=== PATIENT | male | born 1950 | race Caucasian/White ===

== ENCOUNTER 2021-09-29 18:55 | Inpatient (IN) | payer OTHER ==
[~2021-09-29] VITALS: Ht 172.7 cm; Wt 75.0 kg
--- NOTE | 2021-09-29 19:23 | NUR ---
Patient does not take home medications as he does not see a doctor regularly.
[2021-09-29 20:20] LABS: BASOPHILS % (AUTO) 0.2 % (0-1); EOSINOPHILS % (AUTO) 0.3 % (0-6); HEMATOCRIT 48.5 % (42.0-52.0); HEMOGLOBIN 15.8 g/dl (14.0-17.9); LYMPHOCYTES # (AUTO) 1.3 X10'3 (1.1-4.8); LYMPHOCYTES % (AUTO) 8.2 % (21-51); MEAN CORPUSCULAR HEMOGLOBIN 28.5 PG (27.0-31.0); MEAN CORPUSCULAR HGB CONC 32.6 g/dL (33.0-36.5); MEAN CORPUSCULAR VOLUME 87.3 FL (78-98); MONOCYTES # (AUTO) 1.1 X10'3 (0-0.9); MONOCYTES % (AUTO) 6.9 % (2-12); NEUTROPHILS # (AUTO) 13.7 X10'3 (1.8-7.7); NEUTROPHILS % (AUTO) 84.4 % (42-75); PLATELET COUNT 152 X10'3 (140-440); RED BLOOD COUNT 5.55 X10'6 (4.70-6.10); RED CELL DISTRIBUTION WIDTH 14.1 % (11.5-14.5); WHITE BLOOD COUNT 16.2 X10'3 (4.5-11.0)
[2021-09-29 20:40] LABS: ALANINE AMINOTRANSFERASE 53 U/L (12-78); ALKALINE PHOSPHATASE 66 IU/L (46-116); ANION GAP 9 (8-16); ASPARTATE AMINO TRANSFERASE 32 U/L (10-37); BILIRUBIN,TOTAL 0.7 MG/DL (0.1-1.0); BLOOD UREA NITROGEN 20 MG/DL (7-18); BUN/CREATININE RATIO 19.4 (5.4-32.0); CALCIUM 8.9 MG/DL (8.5-10.1); CHLORIDE 103 MMOL/L (99-107); CREATININE 1.03 MG/DL (0.60-1.10); GLUCOSE 136 MG/DL (70-104); POTASSIUM 4.4 MMOL/L (3.5-5.1); SODIUM 139 MMOL/L (135-145); TOTAL CARBON DIOXIDE 26.7 MMOL/L (24-32); TOTAL PROTEIN 8.1 G/DL (6.4-8.2); eGFR 72 ML/MIN
[2021-09-29 20:51] LABS: ETHANOL < 0.010 GM/DL (0.0-0.010)
[2021-09-29] MEDS ORDERED: enoxaparin 100mg/ml syringe SUBCUT ONE (21:05)
[2021-09-29] MEDS ORDERED: iohexol 350MG/ML 100ml bottle IV ONE (21:08)
[2021-09-29] MEDS ORDERED: NO HOME MEDS (21:08)
[2021-09-29 21:28] LABS: CLARITY,URINE CLEAR (Clear); COLOR,URINE YELLOW (Yellow); GLUCOSE, URINE NEGATIVE (Neg); KETONES,URINE NEGATIVE (Neg); LEUKOCYTE ESTERASE ,URINE NEGATIVE (Neg); NITRITES, URINE NEGATIVE (Neg); OCCULT BLOOD,URINE NEGATIVE (Neg); PROTEIN,URINE 30 mg/dl (Neg); UROBILINOGEN,URINE 0.2 E.U/dL (0.2-1.0)
[2021-09-29 21:41] LABS: BACTERIA,URINE NONE SEEN /HPF (Neg); MUCUS STRANDS FEW /LPF (Neg); RBC,URINE NONE SEEN /HPF (0-2); SPERM FEW /HPF (NEGATIVE); SQUAMOUS EPITHELIAL CELL,UR FEW /LPF (FEW); UA COLLECTION TYPE URINAL; WBC,URINE NONE SEEN /HPF (0-4)
--- NOTE | 2021-09-29 21:50 | NUR ---
Rickie Sanchez RN of patient's elevated Troponin level at 2488.
[2021-09-29] MEDS ORDERED: aspirin 325mg tablet PO STA (22:02)
[2021-09-29 23:12] LABS: APTT 24 SECONDS (22-32)
[2021-09-30] VITALS (12 sets, daily range): BP systolic 97–126; BP diastolic 61–84
[2021-09-30] MEDS ORDERED: ondansetron/PF 4mg/2ml inj IV ONE (00:15)
[2021-09-30] MEDS ORDERED: diphenhydrAMINE 25mg capsule PO PRN (01:40)
[2021-09-30] MEDS ORDERED: naloxone 0.4 mg/ml inj IV PRN (01:40)
[2021-09-30] MEDS ORDERED: dextrose 5%-1/2 normal saline 1,000 ML IV SCH (01:40)
[2021-09-30] MEDS ORDERED: mag hydrox/Alum hydrox/simeth 30ml oral suspension PO PRN (01:40)
[2021-09-30] MEDS ORDERED: bisacodyl 10mg suppository rectal RC PRN (01:40)
[2021-09-30] MEDS ORDERED: acetaminophen 325mg tablet PO PRN ×2 (01:40)
[2021-09-30] MEDS ORDERED: morphine 2 MG/ML inj. syringe IV PRN ×2 (01:40)
[2021-09-30] MEDS ORDERED: diphenhydrAMINE 50 mg/ml inj IV PRN (01:40)
[2021-09-30] MEDS ORDERED: magnesium hydroxide 30ml (MOM) UD suspension PO PRN (01:40)
[2021-09-30] MEDS ORDERED: ondansetron/PF 4mg/2ml inj IV PRN (01:40)
[2021-09-30] MEDS ORDERED: acetaminophen 650mg rectal suppository RC PRN (01:40)
[2021-09-30] MEDS ORDERED: ondansetron 4mg rapidly disintigrating tab PO PRN (01:40)
--- NOTE | 2021-09-30 04:04 | NUR ---
called Dr Phillips to clarify if to start heparin drip ryan. Subsequent call to pharmacy heparin drip is appropriately ordered to start at 0900 on 9Apr22 d/t last lovenox injection 80mg at 2100
--- NOTE | 2021-09-30 06:06 | NUR ---
pt refused to place money with security to go into the safe. Pt states he rather hold onto it. Pt aware and understands that he is responsible for it
--- NOTE | 2021-09-30 07:21 | NUR ---
Patient in room PCU 3016. I have received report from Carolyn and had the opportunity to ask questions and assume patient care
[2021-09-30 07:31] LABS: HEMOGLOBIN A1C 6.3 % (4.5-6.2)
[2021-09-30 07:39] LABS: MAGNESIUM 2.3 MG/DL (1.5-2.4); PHOSPHORUS 3.9 MG/DL (2.3-4.5)
[2021-09-30] MEDS: metoprolol succinate 25mg (24-HOUR) SR. Tablet PO SCH (07:42)
[2021-09-30] MEDS: lisinopril 5mg tablet PO SCH (07:42)
[2021-09-30] MEDS: atorvastatin 20mg tablet PO SCH (07:43)
[2021-09-30] MEDS: docusate sod 100mg capsule PO SCH ×2 (07:43→19:39)
[2021-09-30] MEDS: aspirin 81mg, enteric-coated 1 TAB TABLET.DR PO SCH (07:43)
[2021-09-30] MEDS: pantoprazole 40mg Tablet.DR PO SCH (07:44)
[2021-09-30] MEDS ORDERED: heparin 10,000 units/1 ML INJ IV PRN (08:50)
[2021-09-30] MEDS: heparin 25,000 UNIT/250ml bag 250 ML IV SCH (09:24)
--- NOTE | 2021-09-30 13:25 | NUR ---
Page Sent promotional table spacer PAGER ID: [phone] MESSAGE: [phone]. Need order to move to ICU. Please also call house sup. Thank you. Sal SHABAZZ
--- NOTE | 2021-09-30 14:33 | NUR ---
Patient in room PCU 3023. I have received report from Sal RODRIGES and had the opportunity to ask questions in preparation to assume pt care when pt arrives to ICU 2044. per Sal, pt alert and oriented x4, heparin gtt @ 1500units/hr, next PTT 1530.
--- NOTE | 2021-09-30 14:55 | NUR ---
Problems reprioritized. Patient report given, questions answered & plan of care reviewed with
--- NOTE | 2021-09-30 15:16 | NUR ---
Pt arrived via wheel chair at 1445. pt alert and oriented, speech clear, safety education completed. pt ambulated with stand by assist to sit on the bed. skin check completed with Caitlyn RODRIGES. skin unremarkable except superficial abrasion to left forehead. pt verbalizing simple needs. pt hooked up to monitors, VS stable. Heparin running at 1500U/HR. next Ptt at 1530. Dr. Christian on the unit and verbal order received for additional labs.
[2021-09-30 15:36] LABS: MEAN PLATELET VOLUME 9.5 FL (7.4-10.4)
[2021-09-30 15:37] LABS: BASOPHILS # (AUTO) 0.1 X10'3 (0-0.2); BASOPHILS % (AUTO) 0.5 % (0-1); EOSINOPHILS # (AUTO) 0.1 X10'3 (0-0.9); EOSINOPHILS % (AUTO) 0.8 % (0-6); HEMATOCRIT 45.1 % (42.0-52.0); HEMOGLOBIN 14.7 g/dl (14.0-17.9); LYMPHOCYTES # (AUTO) 2.4 X10'3 (1.1-4.8); MEAN CORPUSCULAR HEMOGLOBIN 28.7 PG (27.0-31.0); MEAN CORPUSCULAR HGB CONC 32.7 g/dL (33.0-36.5); MEAN CORPUSCULAR VOLUME 87.6 FL (78-98); MONOCYTES # (AUTO) 1.2 X10'3 (0-0.9); MONOCYTES % (AUTO) 9.2 % (2-12); NEUTROPHILS % (AUTO) 70.5 % (42-75); PLATELET COUNT 158 X10'3 (140-440); RED BLOOD COUNT 5.14 X10'6 (4.70-6.10); RED CELL DISTRIBUTION WIDTH 14.2 % (11.5-14.5); WHITE BLOOD COUNT 12.8 X10'3 (4.5-11.0)
[2021-09-30 15:59] LABS: ALANINE AMINOTRANSFERASE 47 U/L (12-78); ALBUMIN 3.4 G/DL (3.4-5.0); ALBUMIN/GLOBULIN RATIO 0.9 (1.1-1.5); ALKALINE PHOSPHATASE 62 IU/L (46-116); ANION GAP 9 (8-16); ASPARTATE AMINO TRANSFERASE 41 U/L (10-37); BILIRUBIN,TOTAL 0.4 MG/DL (0.1-1.0); BLOOD UREA NITROGEN 23 MG/DL (7-18); CALCIUM 8.4 MG/DL (8.5-10.1); CHLORIDE 107 MMOL/L (99-107); CREATININE 0.96 MG/DL (0.60-1.10); GLUCOSE 135 MG/DL (70-104); POTASSIUM 3.8 MMOL/L (3.5-5.1); SODIUM 140 MMOL/L (135-145); TOTAL CARBON DIOXIDE 24.4 MMOL/L (24-32); TOTAL PROTEIN 7.2 G/DL (6.4-8.2); eGFR 78 ML/MIN
[2021-09-30] MEDS ORDERED: temazepam 15mg capsule PO PRN (21:00)
[2021-10-01] VITALS (24 sets, daily range): BP systolic 96–128; BP diastolic 55–79
[2021-10-01] MEDS: heparin 25,000 UNIT/250ml bag 250 ML IV SCH ×2 (02:41→19:18)
[2021-10-01 03:18] LABS: BASOPHILS % (AUTO) 0.3 % (0-1); EOSINOPHILS # (AUTO) 0.3 X10'3 (0-0.9); EOSINOPHILS % (AUTO) 1.9 % (0-6); HEMATOCRIT 44.4 % (42.0-52.0); HEMOGLOBIN 14.4 g/dl (14.0-17.9); LYMPHOCYTES # (AUTO) 3.8 X10'3 (1.1-4.8); LYMPHOCYTES % (AUTO) 28.3 % (21-51); MEAN CORPUSCULAR HEMOGLOBIN 28.2 PG (27.0-31.0); MEAN CORPUSCULAR HGB CONC 32.5 g/dL (33.0-36.5); MEAN CORPUSCULAR VOLUME 86.9 FL (78-98); MEAN PLATELET VOLUME 9.9 FL (7.4-10.4); MONOCYTES # (AUTO) 1.3 X10'3 (0-0.9); MONOCYTES % (AUTO) 9.7 % (2-12); NEUTROPHILS # (AUTO) 7.9 X10'3 (1.8-7.7); NEUTROPHILS % (AUTO) 59.8 % (42-75); PLATELET COUNT 161 X10'3 (140-440); RED BLOOD COUNT 5.11 X10'6 (4.70-6.10); RED CELL DISTRIBUTION WIDTH 14.1 % (11.5-14.5); WHITE BLOOD COUNT 13.3 X10'3 (4.5-11.0)
[2021-10-01 04:29] LABS: ALANINE AMINOTRANSFERASE 45 U/L (12-78); ALBUMIN 3.3 G/DL (3.4-5.0); ALBUMIN/GLOBULIN RATIO 0.9 (1.1-1.5); ALKALINE PHOSPHATASE 60 IU/L (46-116); ANION GAP 7 (8-16); ASPARTATE AMINO TRANSFERASE 40 U/L (10-37); BILIRUBIN,TOTAL 0.6 MG/DL (0.1-1.0); BLOOD UREA NITROGEN 21 MG/DL (7-18); BUN/CREATININE RATIO 21.9 (5.4-32.0); CALCIUM 8.3 MG/DL (8.5-10.1); CHLORIDE 106 MMOL/L (99-107); CHOL/HDL RATIO 4.4 (0.00-4.99); CHOLESTEROL 183 MG/DL (0-200); CREATININE 0.96 MG/DL (0.60-1.10); GLUCOSE 110 MG/DL (70-104); HDL CHOLESTEROL 42 MG/DL (35-60); LDL CHOLESTEROL 134 MG/DL (50-100); SODIUM 140 MMOL/L (135-145); TOTAL CARBON DIOXIDE 26.6 MMOL/L (24-32); TRIGLYCERIDES 100 MG/DL (20-135); eGFR 78 ML/MIN
[2021-10-01] MEDS: docusate sod 100mg capsule PO SCH ×2 (08:26→19:16)
[2021-10-01] MEDS: aspirin 81mg, enteric-coated 1 TAB TABLET.DR PO SCH (08:26)
[2021-10-01] MEDS: pantoprazole 40mg Tablet.DR PO SCH (08:26)
[2021-10-01] MEDS: atorvastatin 20mg tablet PO SCH (08:27)
[2021-10-01] MEDS: lisinopril 5mg tablet PO SCH (08:27)
[2021-10-01] MEDS: metoprolol succinate 25mg (24-HOUR) SR. Tablet PO SCH (08:27)
[2021-10-01] MEDS ORDERED: naproxen 500mg tablet PO ONE (12:55)
--- NOTE | 2021-10-01 14:19 | NUR ---
Patient heparin rate at 1500 units/hr. PTT therapeutic for three consecutive PTTs at the rate. Spoke with Dr. Grady, PTT to be run daily.
[2021-10-02] VITALS (24 sets, daily range): BP systolic 87–137; BP diastolic 55–83
[2021-10-02 05:40] LABS: BASOPHILS % (AUTO) 0.4 % (0-1); EOSINOPHILS # (AUTO) 0.4 X10'3 (0-0.9); EOSINOPHILS % (AUTO) 3.7 % (0-6); HEMOGLOBIN 13.9 g/dl (14.0-17.9); LYMPHOCYTES # (AUTO) 3.5 X10'3 (1.1-4.8); LYMPHOCYTES % (AUTO) 31.5 % (21-51); MEAN CORPUSCULAR HEMOGLOBIN 27.9 PG (27.0-31.0); MEAN CORPUSCULAR HGB CONC 32.2 g/dL (33.0-36.5); MEAN CORPUSCULAR VOLUME 86.5 FL (78-98); MEAN PLATELET VOLUME 9.6 FL (7.4-10.4); MONOCYTES # (AUTO) 1.1 X10'3 (0-0.9); MONOCYTES % (AUTO) 9.8 % (2-12); NEUTROPHILS # (AUTO) 6.1 X10'3 (1.8-7.7); NEUTROPHILS % (AUTO) 54.6 % (42-75); PLATELET COUNT 177 X10'3 (140-440); RED BLOOD COUNT 4.98 X10'6 (4.70-6.10); RED CELL DISTRIBUTION WIDTH 13.7 % (11.5-14.5); WHITE BLOOD COUNT 11.2 X10'3 (4.5-11.0)
[2021-10-02 06:00] LABS: ALANINE AMINOTRANSFERASE 45 U/L (12-78); ALBUMIN/GLOBULIN RATIO 0.8 (1.1-1.5); ALKALINE PHOSPHATASE 54 IU/L (46-116); ANION GAP 7 (8-16); ASPARTATE AMINO TRANSFERASE 32 U/L (10-37); BILIRUBIN,TOTAL 0.6 MG/DL (0.1-1.0); BLOOD UREA NITROGEN 18 MG/DL (7-18); BUN/CREATININE RATIO 21.7 (5.4-32.0); CALCIUM 8.2 MG/DL (8.5-10.1); CHLORIDE 103 MMOL/L (99-107); CREATININE 0.83 MG/DL (0.60-1.10); GLUCOSE 101 MG/DL (70-104); POTASSIUM 3.8 MMOL/L (3.5-5.1); SODIUM 135 MMOL/L (135-145); TOTAL CARBON DIOXIDE 24.8 MMOL/L (24-32); TOTAL PROTEIN 6.7 G/DL (6.4-8.2); eGFR > 90 ML/MIN
[2021-10-02] MEDS: pantoprazole 40mg Tablet.DR PO SCH (07:23)
[2021-10-02] MEDS: atorvastatin 20mg tablet PO SCH (07:23)
[2021-10-02] MEDS: aspirin 81mg, enteric-coated 1 TAB TABLET.DR PO SCH (07:23)
[2021-10-02] MEDS: metoprolol succinate 25mg (24-HOUR) SR. Tablet PO SCH (07:23)
[2021-10-02] MEDS: lisinopril 5mg tablet PO SCH (07:24)
[2021-10-02] MEDS: docusate sod 100mg capsule PO SCH ×2 (07:24→20:00)
[2021-10-02] MEDS: HYDROcodone/acetaminophen 5mg/325mg tablet PO PRN ×3 (07:28→19:27)
--- NOTE | 2021-10-02 09:01 | NUR ---
Dr. Contreras in to see pt. Order to transfer pt. out of ICU rec'd.
[2021-10-02] MEDS: heparin 25,000 UNIT/250ml bag 250 ML IV SCH ×2 (11:00→12:20)
[2021-10-02] MEDS: benzocaine/menthol oral lozeng 1 EACH BOX MM PRN (11:19)
--- NOTE | 2021-10-02 14:52 | NUR ---
Pt. just had head CT. Dr. Higgins consulted for TPA angiogram. Pt. will be NPO after MN and have procedure in am. RN notified Dr. Contreras.
[2021-10-03] VITALS (20 sets, daily range): BP systolic 93–166; BP diastolic 48–99
[2021-10-03] MEDS: benzocaine/menthol oral lozeng 1 EACH BOX MM PRN (04:28)
[2021-10-03 06:06] LABS: BASOPHILS % (AUTO) 0.3 % (0-1); EOSINOPHILS # (AUTO) 0.3 X10'3 (0-0.9); EOSINOPHILS % (AUTO) 2.9 % (0-6); HEMATOCRIT 45.1 % (42.0-52.0); HEMOGLOBIN 14.9 g/dl (14.0-17.9); LYMPHOCYTES # (AUTO) 2.8 X10'3 (1.1-4.8); LYMPHOCYTES % (AUTO) 28.8 % (21-51); MEAN CORPUSCULAR HEMOGLOBIN 28.8 PG (27.0-31.0); MEAN CORPUSCULAR HGB CONC 33.1 g/dL (33.0-36.5); MEAN CORPUSCULAR VOLUME 87.2 FL (78-98); MEAN PLATELET VOLUME 9.4 FL (7.4-10.4); MONOCYTES # (AUTO) 0.8 X10'3 (0-0.9); MONOCYTES % (AUTO) 8.6 % (2-12); NEUTROPHILS # (AUTO) 5.8 X10'3 (1.8-7.7); NEUTROPHILS % (AUTO) 59.4 % (42-75); PLATELET COUNT 191 X10'3 (140-440); RED BLOOD COUNT 5.17 X10'6 (4.70-6.10); RED CELL DISTRIBUTION WIDTH 13.9 % (11.5-14.5); WHITE BLOOD COUNT 9.7 X10'3 (4.5-11.0)
[2021-10-03 06:37] LABS: ALANINE AMINOTRANSFERASE 60 U/L (12-78); ALBUMIN 3.2 G/DL (3.4-5.0); ALBUMIN/GLOBULIN RATIO 0.8 (1.1-1.5); ALKALINE PHOSPHATASE 60 IU/L (46-116); ANION GAP 10 (8-16); ASPARTATE AMINO TRANSFERASE 36 U/L (10-37); BILIRUBIN,TOTAL 0.5 MG/DL (0.1-1.0); BLOOD UREA NITROGEN 18 MG/DL (7-18); BUN/CREATININE RATIO 20.2 (5.4-32.0); CALCIUM 8.6 MG/DL (8.5-10.1); CHLORIDE 105 MMOL/L (99-107); CREATININE 0.89 MG/DL (0.60-1.10); GLUCOSE 112 MG/DL (70-104); POTASSIUM 3.9 MMOL/L (3.5-5.1); SODIUM 139 MMOL/L (135-145); TOTAL CARBON DIOXIDE 24.1 MMOL/L (24-32); TOTAL PROTEIN 7.3 G/DL (6.4-8.2); eGFR 85 ML/MIN
[2021-10-03] MEDS: atorvastatin 20mg tablet PO SCH (07:05)
[2021-10-03] MEDS: lisinopril 5mg tablet PO SCH (07:05)
[2021-10-03] MEDS: pantoprazole 40mg Tablet.DR PO SCH (07:05)
[2021-10-03] MEDS: docusate sod 100mg capsule PO SCH ×2 (07:06→20:32)
[2021-10-03] MEDS: aspirin 81mg, enteric-coated 1 TAB TABLET.DR PO SCH (07:06)
[2021-10-03] MEDS: metoprolol succinate 25mg (24-HOUR) SR. Tablet PO SCH (07:06)
--- NOTE | 2021-10-03 07:35 | NUR ---
Dr. Contreras in to see pt. Updated on plan of care.
[2021-10-03] MEDS ORDERED: hydrALAZINE 20mg/ml inj. IV PRN (08:25)
--- NOTE | 2021-10-03 08:51 | NUR ---
PRN Hydralazine given for SBP above 160 per new order this am.
[2021-10-03] MEDS: heparin 25,000 UNIT/250ml bag 250 ML IV SCH (13:31)
--- NOTE | 2021-10-03 14:02 | NUR ---
Dr. Zuniga here to see pt. Orders rec'd for PT and ECHO.
--- NOTE | 2021-10-03 14:15 | NUR ---
ECHO being done.
--- NOTE | 2021-10-03 14:38 | NUR ---
Pt. ambulated with RN. Tolerated well. No SOB/CP. VSS during walk.
[2021-10-03] MEDS: HYDROcodone/acetaminophen 5mg/325mg tablet PO PRN ×2 (14:43→20:33)
--- NOTE | 2021-10-03 14:53 | NUR ---
Dr. Contreras ordered pt. to transfer to Tele.
--- NOTE | 2021-10-03 15:36 | NUR ---
Ordered pt. a sandwich since he has been NPO for breakfast and lunch. No IR procedure scheduled. Awaiting Tele Floor bed. VSS.
--- NOTE | 2021-10-03 15:38 | NUR ---
Pt. constipated with no BM since admit. Refused M.O.M.
--- NOTE | 2021-10-03 17:00 | NUR ---
Attempted to call report. Caitlyn said she could not locate the RN Faviola and will have her call for report.
--- NOTE | 2021-10-03 17:36 | NUR ---
Pt. transferred to U 3018B (after giving report to Faviola RODRIGES) in stable condition with all belongings including meds and chart. house designer aware of pt's arrival. Pt. was given call light prior to FLIGHT ENGINEER INSTRUCTOR leaving pt.
--- NOTE | 2021-10-04 01:16 | NUR ---
0110 pt became agitated and aggressive, pushing staff and yelling. Pt stated he believes he is at home and the staff members were intruders. Pt was redirected with no affect. Security called and valium was given .
[2021-10-04 01:44] LABS: BASOPHILS % (AUTO) 0.3 % (0-1); EOSINOPHILS # (AUTO) 0.2 X10'3 (0-0.9); EOSINOPHILS % (AUTO) 2.2 % (0-6); HEMATOCRIT 45.1 % (42.0-52.0); HEMOGLOBIN 14.8 g/dl (14.0-17.9); LYMPHOCYTES # (AUTO) 3.2 X10'3 (1.1-4.8); LYMPHOCYTES % (AUTO) 30.5 % (21-51); MEAN CORPUSCULAR HEMOGLOBIN 28.7 PG (27.0-31.0); MEAN CORPUSCULAR HGB CONC 32.8 g/dL (33.0-36.5); MEAN CORPUSCULAR VOLUME 87.7 FL (78-98); MEAN PLATELET VOLUME 9.7 FL (7.4-10.4); MONOCYTES % (AUTO) 9.2 % (2-12); NEUTROPHILS % (AUTO) 57.8 % (42-75); PLATELET COUNT 206 X10'3 (140-440); RED BLOOD COUNT 5.15 X10'6 (4.70-6.10); RED CELL DISTRIBUTION WIDTH 13.9 % (11.5-14.5); WHITE BLOOD COUNT 10.4 X10'3 (4.5-11.0)
[2021-10-04 01:46] LABS: ALANINE AMINOTRANSFERASE 66 U/L (12-78); ALBUMIN 3.2 G/DL (3.4-5.0); ALBUMIN/GLOBULIN RATIO 0.8 (1.1-1.5); ALKALINE PHOSPHATASE 62 IU/L (46-116); ANION GAP 12 (8-16); ASPARTATE AMINO TRANSFERASE 43 U/L (10-37); BILIRUBIN,TOTAL 0.4 MG/DL (0.1-1.0); BLOOD UREA NITROGEN 18 MG/DL (7-18); BUN/CREATININE RATIO 21.4 (5.4-32.0); CALCIUM 8.5 MG/DL (8.5-10.1); CHLORIDE 104 MMOL/L (99-107); CREATININE 0.84 MG/DL (0.60-1.10); GLUCOSE 104 MG/DL (70-104); SODIUM 139 MMOL/L (135-145); TOTAL PROTEIN 7.1 G/DL (6.4-8.2); eGFR > 90 ML/MIN
[2021-10-04 02:00] VITALS: BP 101/70
[2021-10-04] MEDS: HYDROcodone/acetaminophen 5mg/325mg tablet PO PRN (05:41)
[2021-10-04 07:35] VITALS: BP 132/68
--- NOTE | 2021-10-04 08:38 | NUR ---
Initial: Pt admitted w/ bilateral PE w/ R sided heart strain and RLE DVT per EMR. Currently on Mechanical soft diet per [employer] recs w/ mostly 75-100% intake of meals meeting est nutrient needs at this time. LBM 4 receiving routine colace and pt noted to have refused PRN MoM. No nutrition intervention implemented at this time, will continue to monitor. Recs: 1. Continue Mechanical soft diet per [employer] recs 2. Routine bowel care 3. Weekly wts Addendum: 10/04/21 at [address] Amended: Links added.
[2021-10-04] MEDS: pantoprazole 40mg Tablet.DR PO SCH (09:46)
[2021-10-04] MEDS: aspirin 81mg, enteric-coated 1 TAB TABLET.DR PO SCH (09:46)
[2021-10-04] MEDS: docusate sod 100mg capsule PO SCH (09:47)
[2021-10-04] MEDS: metoprolol succinate 25mg (24-HOUR) SR. Tablet PO SCH (09:47)
[2021-10-04] MEDS: lisinopril 5mg tablet PO SCH (09:47)
[2021-10-04] MEDS: atorvastatin 20mg tablet PO SCH (09:47)
--- NOTE | 2021-10-04 11:42 | NUR ---
1145 10/04/2021 Stopped heparin drip and gave 10mg pO eliquis per MD order.
[2021-10-04] MEDS ORDERED: apixaban 5mg tablet PO ONE (12:00)
[2021-10-04 14:00] VITALS: BP 118/77
[2021-10-04] MEDS ORDERED: ATOR20TA66 PO (14:15)
[2021-10-04] MEDS ORDERED: METO50TA16 PO (14:15)
[2021-10-04] MEDS ORDERED: LISI5TAB22 PO (14:15)
[2021-10-04] MEDS ORDERED: APIX5TAB3 PO (14:15)
[2021-10-04] MEDS ORDERED: OXYC1TAB17 PO ×2 (15:50→16:14)
== END 2021-10-04 16:00 | disposition home or self-care (01) | DRG 175 ==
LOC: ER 18:56 → ED HOLD 21:37 → PCU 3S 09-30 02:36 → ICU 2S 09-30 14:51 → PCU 3S 10-03 17:25
PROVIDERS: ADMIT Family Medicine; ATTEND Family Medicine
PROC: B32T1ZZ Computerized Tomography (CT Scan) of Left Pulmonary Artery using Low Osmolar Contrast (ICD-10-PCS; principal; 2021-09-29)
PROC: B3201ZZ Computerized Tomography (CT Scan) of Thoracic Aorta using Low Osmolar Contrast (ICD-10-PCS; 2021-09-29)
PROC: B32S1ZZ Computerized Tomography (CT Scan) of Right Pulmonary Artery using Low Osmolar Contrast (ICD-10-PCS; 2021-09-29)
DX: I26.99 Other pulmonary embolism without acute cor pulmonale (principal); I21.A1 Myocardial infarction type 2; I82.411 Acute embolism and thrombosis of right femoral vein; D35.02 Benign neoplasm of left adrenal gland; E78.00 Pure hypercholesterolemia, unspecified; M25.512 Pain in left shoulder; K76.0 Fatty (change of) liver, not elsewhere classified; I27.20 Pulmonary hypertension, unspecified; D72.829 Elevated white blood cell count, unspecified; W18.39XA Other fall on same level, initial encounter; F12.90 Cannabis use, unspecified, uncomplicated; I50.810 Right heart failure, unspecified; Z60.2 Problems related to living alone; I11.0 Hypertensive heart disease with heart failure; R55 Syncope and collapse; J44.9 Chronic obstructive pulmonary disease, unspecified; S00.81XA Abrasion of other part of head, initial encounter; Z79.01 Long term (current) use of anticoagulants; Z79.899 Other long term (current) drug therapy; Z87.891 Personal history of nicotine dependence; Y93.89 Activity, other specified; Y92.098 Other place in other non-institutional residence as the place of occurrence of the external cause; Y99.8 Other external cause status; Z88.5 Allergy status to narcotic agent
CPT/HCPCS: 36415; 70450; 71045; 71275; 73030; 73502; 73552; 80053; 80061; 80320; 81001; 83036; 83735; 83880; 84100; 84145; 84443; 84484; 85025; 85730; 87081; 92508; 92616; 93005; 93306; 93308; 93970; 96372; 97116; 97161; 97530; 99291; G0378; J0360; J1644; J1650; J2405; Q9967

== ENCOUNTER 2023-07-07 12:52 | Emergency (ER) | payer MEDICAID ==
[~2023-07-07] VITALS: Ht 172.7 cm; Wt 85.4 kg
[~2023-07-07 12:52] MED LIST: APIX5TAB3 PO; ATOR20TA66 PO; LISI5TAB22 PO; METO50TA16 PO; OXYC1TAB17 PO
[2023-07-07 13:23] VITALS: BP 122/72; PULSE 97; RESP 12; TEMP 97; O2SAT 97
[2023-07-07] MEDS ORDERED: DICL20GE TP (15:06)
[2023-07-07] MEDS ORDERED: OXYC-593 PO (15:09)
== END 2023-07-07 15:29 | disposition home or self-care (01) ==
LOC: ER 12:52
DX: S83.91XA Sprain of unspecified site of right knee, initial encounter (principal); M25.561 Pain in right knee; E78.00 Pure hypercholesterolemia, unspecified; I10 Essential (primary) hypertension; F12.90 Cannabis use, unspecified, uncomplicated; Z86.718 Personal history of other venous thrombosis and embolism; Z88.8 Allergy status to other drugs, medicaments and biological substances; Z79.899 Other long term (current) drug therapy; Z85.46 Personal history of malignant neoplasm of prostate; Z79.01 Long term (current) use of anticoagulants; X50.1XXA Overexertion from prolonged static or awkward postures, initial encounter; Y93.89 Activity, other specified; Y92.89 Other specified places as the place of occurrence of the external cause; Y99.8 Other external cause status
CPT/HCPCS: 29530; 99284

== ENCOUNTER 2023-07-17 11:18 | Emergency (ER) | payer MEDICAID ==
[~2023-07-17] VITALS: Ht 172.7 cm; Wt 85.5 kg
[~2023-07-17 11:18] MED LIST changes: +DICL20GE TP; +OXYC-593 PO
[2023-07-17 11:56] VITALS: BP 129/83; PULSE 71; RESP 18; O2SAT 98
[2023-07-17 13:01] LABS: BASOPHILS % (AUTO) 0.4 % (0-1); EOSINOPHILS # (AUTO) 0.2 X10'3 (0-0.9); EOSINOPHILS % (AUTO) 2.7 % (0-6); HEMATOCRIT 46.4 % (42.0-52.0); HEMOGLOBIN 15.3 g/dl (14.0-17.9); LYMPHOCYTES # (AUTO) 2.6 X10'3 (1.1-4.8); LYMPHOCYTES % (AUTO) 33.1 % (21-51); MEAN CORPUSCULAR HGB CONC 33.1 g/dL (33.0-36.5); MEAN CORPUSCULAR VOLUME 87.8 FL (78-98); MEAN PLATELET VOLUME 9.4 FL (7.4-10.4); MONOCYTES # (AUTO) 0.8 X10'3 (0-0.9); MONOCYTES % (AUTO) 9.7 % (2-12); NEUTROPHILS # (AUTO) 4.2 X10'3 (1.8-7.7); NEUTROPHILS % (AUTO) 54.1 % (42-75); PLATELET COUNT 219 X10'3 (140-440); RED BLOOD COUNT 5.28 X10'6 (4.70-6.10); RED CELL DISTRIBUTION WIDTH 12.9 % (11.5-14.5); WHITE BLOOD COUNT 7.8 X10'3 (4.5-11.0)
[2023-07-17 13:10] LABS: APTT 28 SECONDS (22-32); PROTHROMBIN TIME 10.5 SECONDS (9.0-12.0)
[2023-07-17 13:12] LABS: ALANINE AMINOTRANSFERASE 67 U/L (12-78); ALBUMIN 3.7 G/DL (3.4-5.0); ALKALINE PHOSPHATASE 68 IU/L (46-116); ANION GAP 7 (8-16); ASPARTATE AMINO TRANSFERASE 40 U/L (10-37); BILIRUBIN,TOTAL 0.4 MG/DL (0.1-1.0); BLOOD UREA NITROGEN 17 MG/DL (7-18); BUN/CREATININE RATIO 23.9 (10.0-20.0); CALCIUM 9.5 MG/DL (8.5-10.1); CHLORIDE 104 MMOL/L (99-107); CREATININE 0.71 MG/DL (0.60-1.10); GLUCOSE 103 MG/DL (70-104); POTASSIUM 4.1 MMOL/L (3.5-5.1); SODIUM 136 MMOL/L (135-145); TOTAL CARBON DIOXIDE 24.8 MMOL/L (24-32); TOTAL PROTEIN 7.3 G/DL (6.4-8.2); eCRCL 92 ML/MIN; eGFR > 90 ML/MIN
[2023-07-17] MEDS ORDERED: OXYC5TAB2 PO (16:41)
[2023-07-17 17:27] VITALS: TEMP 98.1
== END 2023-07-17 17:33 | disposition home or self-care (01) ==
LOC: ER 11:20
DX: S83.8X1A Sprain of other specified parts of right knee, initial encounter (principal); I82.491 Acute embolism and thrombosis of other specified deep vein of right lower extremity; X58.XXXA Exposure to other specified factors, initial encounter; Y93.89 Activity, other specified; Y92.89 Other specified places as the place of occurrence of the external cause; Y99.8 Other external cause status
CPT/HCPCS: 36415; 73564; 80053; 85025; 85610; 85730; 93971; 99284

== ENCOUNTER 2023-11-13 15:28 | Inpatient (IN) | payer MEDICAID ==
[~2023-11-13] VITALS: Ht 172.7 cm; Wt 89.8 kg
[2023-11-13] MEDS ORDERED: iohexol 300mg/ml 100ml inj. ONE (16:37)
[2023-11-13 17:10] LABS: BASOPHILS % (AUTO) 0.2 % (0-1); EOSINOPHILS # (AUTO) 0.2 X10'3 (0-0.9); EOSINOPHILS % (AUTO) 1.9 % (0-6); HEMATOCRIT 45.6 % (42.0-52.0); HEMOGLOBIN 14.7 g/dl (14.0-17.9); LYMPHOCYTES # (AUTO) 0.6 X10'3 (1.1-4.8); LYMPHOCYTES % (AUTO) 6.2 % (21-51); MEAN CORPUSCULAR HGB CONC 32.4 g/dL (33.0-36.5); MEAN CORPUSCULAR VOLUME 89.6 FL (78-98); MEAN PLATELET VOLUME 8.8 FL (7.4-10.4); MONOCYTES # (AUTO) 0.6 X10'3 (0-0.9); MONOCYTES % (AUTO) 6.3 % (2-12); NEUTROPHILS % (AUTO) 85.4 % (42-75); PLATELET COUNT 176 X10'3 (140-440); RED BLOOD COUNT 5.09 X10'6 (4.70-6.10); RED CELL DISTRIBUTION WIDTH 13.7 % (11.5-14.5); WHITE BLOOD COUNT 9.4 X10'3 (4.5-11.0)
[2023-11-13 17:20] LABS: ALBUMIN 3.9 G/DL (3.4-5.0); ANION GAP 5 (8-16); BLOOD UREA NITROGEN 14 MG/DL (7-18); BUN/CREATININE RATIO 16.9 (10.0-20.0); CALCIUM 9.8 MG/DL (8.5-10.1); CHLORIDE 104 MMOL/L (99-107); CREATININE 0.83 MG/DL (0.60-1.10); GLUCOSE 143 MG/DL (70-104); POTASSIUM 4.1 MMOL/L (3.5-5.1); SODIUM 139 MMOL/L (135-145); TOTAL CARBON DIOXIDE 29.9 MMOL/L (24-32); eCRCL 79 ML/MIN; eGFR > 90 ML/MIN
[2023-11-13] MEDS: ondansetron/PF 4mg/2ml inj IV ONE (17:28)
[2023-11-13] MEDS: morphine 4 MG/ML inj SYRINge IV ONE (17:29)
[2023-11-13] MEDS: HYDROmorphone inj. 0.5 MG/0.5 ML DISP.SYRIN IV ONE (19:20)
[2023-11-13] MEDS: pantoprazole 40mg Tablet.DR PO SCH (19:20)
[2023-11-13] MEDS ORDERED: METO25TA6 (19:30)
[2023-11-13] MEDS ORDERED: FLO0.4C (19:30)
[2023-11-13] MEDS ORDERED: SIME125C43 PO (19:30)
[2023-11-13 19:51] LABS: BILIRUBIN,URINE NEGATIVE (Neg); CLARITY,URINE CLEAR (Clear); COLOR,URINE YELLOW (Yellow); GLUCOSE, URINE NEGATIVE (Neg); KETONES,URINE NEGATIVE (Neg); LEUKOCYTE ESTERASE ,URINE NEGATIVE (Neg); NITRITES, URINE NEGATIVE (Neg); OCCULT BLOOD,URINE TRACE-INTACT (Neg); PH,URINE 5.5 (4.8-8.0); PROTEIN,URINE TRACE mg/dl (Neg); UROBILINOGEN,URINE 0.2 E.U/dL (0.2-1.0)
[2023-11-13 19:52] LABS: UA COLLECTION TYPE CLN CATCH MIDSTREAM
[2023-11-13 19:58] LABS: BACTERIA,URINE FEW /HPF (Neg); MUCUS STRANDS MODERATE /LPF (Neg); RBC,URINE 0-2 /HPF (0-2); SQUAMOUS EPITHELIAL CELL,UR FEW /LPF (FEW); WBC,URINE 0-4 /HPF (0-4)
[2023-11-13 19:59] LABS: HYALINE CASTS 0-3 /LPF (NEGATIVE)
[2023-11-13] MEDS: ketorolac trometh. 30mg/ml inj. IV ONE (20:35)
[2023-11-13] MEDS: apixaban 5mg tablet PO SCH (20:38)
[2023-11-13] MEDS ORDERED: morphine 2 MG/ML inj. syringe IV PRN (20:50)
[2023-11-13] MEDS ORDERED: magnesium hydroxide 30ml (MOM) UD suspension PO PRN (20:50)
[2023-11-13] MEDS ORDERED: ondansetron/PF 4mg/2ml inj IV PRN (20:50)
[2023-11-13] MEDS ORDERED: acetaminophen 325mg tablet PO PRN (20:50)
[2023-11-13] MEDS ORDERED: magnesium 4gm in 100ml NS 100 ML IV PRN (20:50)
[2023-11-13] MEDS ORDERED: mag hydrox/Alum hydrox/simeth 30ml oral suspension PO PRN (20:50)
[2023-11-13] MEDS ORDERED: potassium Cl 20 mEq SR tablet PO PRN ×2 (20:50)
[2023-11-13] MEDS ORDERED: magnesium Cl slow-release 64mg tablet PO PRN (20:50)
[2023-11-13] MEDS ORDERED: magnesium 2GM in 50ml NS 50 ML IV PRN (20:50)
[2023-11-13] MEDS ORDERED: potassium Cl 40MEQ/1/2NS 520ml 520 ML IV PRN (20:50)
[2023-11-13] MEDS: normal saline 1000ml 1,000 ML IV SCH (20:50)
[2023-11-13] MEDS ORDERED: ondansetron 4mg rapidly disintigrating tab PO PRN (20:50)
[2023-11-14] MEDS ORDERED: FLO0.4C PO (01:32)
[2023-11-14] MEDS ORDERED: LOP25T PO (01:32)
[2023-11-14] MEDS ORDERED: PERFLUTREN PROTEIN-A MICROSPHR (Optison) 0.22 MG/ML 3ML VIAL IV PRN (04:35)
[2023-11-14] MEDS: morphine 2 MG/ML inj. syringe IV PRN (04:59)
[2023-11-14 07:32] LABS: BASOPHILS % (AUTO) 0.4 % (0-1); EOSINOPHILS # (AUTO) 0.3 X10'3 (0-0.9); EOSINOPHILS % (AUTO) 4.3 % (0-6); HEMATOCRIT 43.3 % (42.0-52.0); HEMOGLOBIN 14.1 g/dl (14.0-17.9); LYMPHOCYTES # (AUTO) 0.8 X10'3 (1.1-4.8); LYMPHOCYTES % (AUTO) 13.1 % (21-51); MEAN CORPUSCULAR HEMOGLOBIN 29.2 PG (27.0-31.0); MEAN CORPUSCULAR HGB CONC 32.7 g/dL (33.0-36.5); MEAN CORPUSCULAR VOLUME 89.4 FL (78-98); MEAN PLATELET VOLUME 8.6 FL (7.4-10.4); MONOCYTES # (AUTO) 0.6 X10'3 (0-0.9); MONOCYTES % (AUTO) 9.6 % (2-12); NEUTROPHILS # (AUTO) 4.5 X10'3 (1.8-7.7); NEUTROPHILS % (AUTO) 72.6 % (42-75); PLATELET COUNT 164 X10'3 (140-440); RED BLOOD COUNT 4.84 X10'6 (4.70-6.10); RED CELL DISTRIBUTION WIDTH 13.4 % (11.5-14.5); WHITE BLOOD COUNT 6.2 X10'3 (4.5-11.0)
[2023-11-14 07:46] LABS: ALBUMIN 3.2 G/DL (3.4-5.0); ANION GAP 3 (8-16); BLOOD UREA NITROGEN 18 MG/DL (7-18); BUN/CREATININE RATIO 22.5 (10.0-20.0); CALCIUM 9.4 MG/DL (8.5-10.1); CHLORIDE 106 MMOL/L (99-107); GLUCOSE 102 MG/DL (70-104); MAGNESIUM 2.1 MG/DL (1.5-2.4); PHOSPHORUS 3.6 MG/DL (2.3-4.5); POTASSIUM 4.3 MMOL/L (3.5-5.1); SODIUM 139 MMOL/L (135-145); TOTAL CARBON DIOXIDE 30.5 MMOL/L (24-32); eCRCL 82 ML/MIN; eGFR > 90 ML/MIN
[2023-11-14] MEDS: tamsulosin 0.4mg capsule PO SCH (07:53)
[2023-11-14] MEDS: atorvastatin 20mg tablet PO SCH (07:53)
[2023-11-14] MEDS: lisinopril 5mg tablet PO SCH (07:53)
[2023-11-14] MEDS: metoprolol tartrate 12.5mg (1/2 tablet) PO SCH (07:54)
[2023-11-14] MEDS: K and/or MAG REPLACEMENT MC SCH (08:00)
[2023-11-14] MEDS ORDERED: atorvastatin 20mg tablet PO SCH (08:45)
[2023-11-14] MEDS: docusate sod 100mg capsule PO ONE (10:47)
[2023-11-14] MEDS: HYDROcodone/acetaminophen 5mg/325mg tablet PO ONE (10:47)
[2023-11-14] MEDS ORDERED: MELO-102 PO (12:37)
[2023-11-14] MEDS ORDERED: CYCL5TAB PO (12:37)
[2023-11-14 16:04] VITALS: BP 161/75; PULSE 81; RESP 14; TEMP 98.1; O2SAT 99
== END 2023-11-14 16:07 | disposition home or self-care (01) | DRG 347 ==
LOC: ER 15:28 → UNDOADMOB 20:46 → ED HOLD 20:46 → OBSVTOIN 20:54
PROVIDERS: ADMIT Surgery Surgical Critical Care; ATTEND Family Medicine
DX: M54.50 Low back pain, unspecified (principal); S09.8XXA Other specified injuries of head, initial encounter; C61 Malignant neoplasm of prostate; E78.00 Pure hypercholesterolemia, unspecified; I10 Essential (primary) hypertension; W18.39XA Other fall on same level, initial encounter; I25.10 Atherosclerotic heart disease of native coronary artery without angina pectoris; Y93.89 Activity, other specified; Y92.89 Other specified places as the place of occurrence of the external cause; Y99.8 Other external cause status; Z86.73 Personal history of transient ischemic attack (TIA), and cerebral infarction without residual deficits; Z86.711 Personal history of pulmonary embolism; Z79.899 Other long term (current) drug therapy; Z79.01 Long term (current) use of anticoagulants; Z86.718 Personal history of other venous thrombosis and embolism; Z88.6 Allergy status to analgesic agent; Z88.5 Allergy status to narcotic agent; Z82.49 Family history of ischemic heart disease and other diseases of the circulatory system
CPT/HCPCS: 36415; 70450; 71045; 71260; 72125; 72131; 74177; 80048; 81001; 83735; 84100; 84484; 85025; 93005; 93306; 93880; 99285; G0378; J1170; J1885; J2270; J2405; J3490; J7030; Q9967

== ENCOUNTER 2024-09-03 10:25 | Emergency (ER) | payer MEDICARE, MEDICAID ==
[~2024-09-03] VITALS: Ht 175.3 cm; Wt 81.8 kg
[~2024-09-03 10:25] MED LIST changes: +CYCL-920 PO; -DICL20GE TP; +FLO0.4C PO; +LOP25T PO; +MELO-102 PO; -METO50TA16 PO; -OXYC-593 PO; -OXYC1TAB17 PO; +SIME125C43 PO
[2024-09-03 10:37] VITALS: TEMP 96.1
[2024-09-03 11:12] LABS: BASOPHILS % (AUTO) 0.3 % (0-1); EOSINOPHILS # (AUTO) 0.1 X10'3 (0-0.9); EOSINOPHILS % (AUTO) 1.4 % (0-6); HEMOGLOBIN 14.8 g/dl (14.0-17.9); LYMPHOCYTES # (AUTO) 0.9 X10'3 (1.1-4.8); LYMPHOCYTES % (AUTO) 12.5 % (21-51); MEAN CORPUSCULAR HEMOGLOBIN 29.6 PG (27.0-31.0); MEAN CORPUSCULAR HGB CONC 32.8 g/dL (33.0-36.5); MEAN CORPUSCULAR VOLUME 90.3 FL (78-98); MEAN PLATELET VOLUME 7.8 FL (7.4-10.4); MONOCYTES # (AUTO) 0.4 X10'3 (0-0.9); MONOCYTES % (AUTO) 5.4 % (2-12); NEUTROPHILS # (AUTO) 5.9 X10'3 (1.8-7.7); NEUTROPHILS % (AUTO) 80.4 % (42-75); PLATELET COUNT 231 X10'3 (140-440); RED BLOOD COUNT 4.98 X10'6 (4.70-6.10); RED CELL DISTRIBUTION WIDTH 13.9 % (11.5-14.5); WHITE BLOOD COUNT 7.4 X10'3 (4.5-11.0)
[2024-09-03 11:27] LABS: ALANINE AMINOTRANSFERASE 58 U/L (12-78); ALBUMIN 3.9 G/DL (3.4-5.0); ALKALINE PHOSPHATASE 90 IU/L (46-116); ANION GAP 6 (8-16); ASPARTATE AMINO TRANSFERASE 29 U/L (10-37); BILIRUBIN,TOTAL 0.4 MG/DL (0.1-1.0); BLOOD UREA NITROGEN 17 MG/DL (7-18); BUN/CREATININE RATIO 24.3 (10.0-20.0); CALCIUM 10.2 MG/DL (8.5-10.1); CHLORIDE 104 MMOL/L (99-107); GLUCOSE 136 MG/DL (70-104); POTASSIUM 4.5 MMOL/L (3.5-5.1); SODIUM 139 MMOL/L (135-145); TOTAL CARBON DIOXIDE 28.8 MMOL/L (24-32); eCRCL 95 ML/MIN; eGFR > 90 ML/MIN
[2024-09-03 11:35] LABS: PRO BRAIN NATRIURETIC PEPTIDE 76 PG/ML (0-125)
[2024-09-03 12:10] VITALS: BP 149/63; PULSE 60; RESP 14; O2SAT 96
== END 2024-09-03 12:11 | disposition home or self-care (01) ==
LOC: ER 10:26
DX: R53.1 Weakness (principal); R42 Dizziness and giddiness; E78.00 Pure hypercholesterolemia, unspecified; I10 Essential (primary) hypertension; F12.90 Cannabis use, unspecified, uncomplicated; Z86.711 Personal history of pulmonary embolism; Z86.718 Personal history of other venous thrombosis and embolism; Z88.5 Allergy status to narcotic agent; Z88.8 Allergy status to other drugs, medicaments and biological substances; Z79.899 Other long term (current) drug therapy; Z60.2 Problems related to living alone
CPT/HCPCS: 36415; 71045; 80053; 83880; 84484; 85025; 93005; 99285